=== PATIENT | male | born 1960 | race Caucasian/White ===

== ENCOUNTER 2016-07-06 02:00 | Emergency (ER) | payer OTHER ==
[~2016-07-06] VITALS: Ht 177.8 cm; Wt 86.2 kg
[2016-07-06 02:34] VITALS: BP 152/84
[2016-07-06] MEDS ORDERED: KETOROLAC 15 MG/ML VIAL. IM ONE (03:00)
[2016-07-06] MEDS ORDERED: HYDROMORPHONE 2 MG/ML VIAL. IM ONE (03:00)
[2016-07-06] MEDS ORDERED: ONDANSETRON ODT 4 MG TAB.RAPDIS PO ONE (03:00)
[2016-07-06 03:29] LABS: OBC FLU VALID
[2016-07-06] MEDS ORDERED: PROM5SYR2 PO (03:34)
[2016-07-06] MEDS ORDERED: IBUP-1007 PO (03:34)
[2016-07-06] MEDS ORDERED: OSEL75CA PO (03:34)
--- NOTE | 2016-07-06 03:34 | PHYS DOC ---
Past Medical History Past Medical History: Diverticulitis, High Cholesterol, Hypertension Past Surgical History: Appendectomy Alcohol Use: None Drug Use: None Adult General Chief Complaint Chief Complaint: CHEST PAIN HPI HPI Patient is a 55 year old gentleman who presents here today complaining of cough congestion rhinorrhea. Patient reports she been feeling sick for several days now. Patient has any shortness of breath. Patient has any abdominal pain. Patient denies any dysuria frequency urgency. Patient's physical exam was significant for tenderness to palpation to his right anterior chest wall. Patient's lungs were clear. Patient's heart is regular. Patient's chest x-ray was clear and without any infiltrates or effusions. Patient's influenza test came back positive. Patient was discharged home with Tamiflu. Patient is given a dose here in the ED. Patient will follow up with primary care physician for further evaluation. Review of Systems Review of Systems Eyes: Denies change in visual acuity, redness, or eye pain [] Respiratory: Denies cough or shortness of breath [] Cardiovascular: No additional information not addressed in HPI [] GI: Denies abdominal pain, nausea, vomiting, bloody stools or diarrhea [] : Denies dysuria or hematuria [] Musculoskeletal: Denies back pain or joint pain [] Integument: Denies rash or skin lesions [] Neurologic: Denies headache, focal weakness or sensory changes [] Endocrine: Denies polyuria or polydipsia [] All other review systems are negative except as documented in the history of present illness portion. Current Medications Current Medications Current Medications Medications (Trade) Dose Ordered Sig/Aurelio Start Time Stop Time Status Last Admin Dose Admin Hydromorphone HCl (Dilaudid) 1 mg 1X ONCE 07/06/16 03:00 07/06/16 03:01 DC 07/06/16 02:53 1 MG Ketorolac Tromethamine (Toradol) 15 mg 1X ONCE 07/06/16 03:00 07/06/16 03:01 DC 07/06/16 02:53 15 MG Ondansetron HCl (Zofran Odt) 4 mg 1X ONCE 07/06/16 03:00 07/06/16 03:01 DC 07/06/16 02:52 4 MG Oseltamivir Phosphate (Tamiflu) 75 mg 1X ONCE 07/06/16 04:00 07/06/16 04:01 DC 07/06/16 03:57 75 MG Promethazine HCl/ Codeine (Phenergan With Codeine) 10 ml 1X ONCE 07/06/16 04:00 07/06/16 04:01 DC 07/06/16 03:59 10 ML Allergies Allergies Allergies Coded Allergies Type Severity Reaction Last Updated Verified No Known Drug Allergies 07/06/16 No Physical Exam Physical Exam Constitutional: Well developed, well nourished, no acute distress, non-toxic appearance. [] HENT: Normocephalic, atraumatic, bilateral external ears normal, oropharynx moist, no oral exudates, nose normal. [] Eyes: PERRLA, EOMI, conjunctiva normal, no discharge. [] Neck: Normal range of motion, no tenderness, supple, no stridor. [] Cardiovascular:Heart rate regular rhythm, no murmur [] Lungs & Thorax: Bilateral breath sounds clear to auscultation [] Abdomen: Bowel sounds normal, soft, no tenderness, no masses, no pulsatile masses. [] Skin: Warm, dry, no erythema, no rash. [] Back: No tenderness, no CVA tenderness. [] Extremities: No tenderness, no cyanosis, no clubbing, ROM intact, no edema. [] Neurologic: Alert and oriented X 3, normal motor function, normal sensory function, no focal deficits noted. [] Psychologic: Affect normal, judgement normal, mood normal. [] Current Patient Data Vital Signs Vital Signs Date Time Temp Pulse Resp B/P Pulse Ox O2 Delivery O2 Flow Rate FiO2 07/06/16 02:53 16 Room Air 07/06/16 02:34 98.6 88 152/84 95 98.6 Lab Values Laboratory Tests Test 07/06/16 02:19 Influenza Type A Antigen Positive (NEGATIVE) Influenza Type B Antigen Negative (NEGATIVE) EKG EKG [] Radiology/Procedures Radiology/Procedures [] Course & Med Decision Making Course & Med Decision Making Pertinent Labs and Imaging studies reviewed. (See chart for details) [] Dragon Disclaimer Dragon Disclaimer This electronic medical record was generated, in whole or in part, using a voice recognition dictation system. Departure Departure Impression: Primary Impression: Influenza Additional Impression: Chest wall pain Disposition: HOME, SELF-CARE Condition: IMPROVED Referrals: NO PCP (PCP) Patient Instructions: Chest Wall Pain, Influenza, Adult Scripts Oseltamivir Phosphate (Tamiflu)75 Mg [id number] Mg PO BID FLU 5 Days Prov:DARSHANA MCKEE MD 07/06/16 Promethazine HCl/Codeine (Prometh-Codein 6.25-10 mg/5 ml)5 Ml Syrup10 Ml PO Q6HRS PRN COUGH #240 Prov:DARSHANA MCKEE MD 07/06/16 Ibuprofen 600 Mg [id number] Mg PO PRN Q6HRS PRN INFLAMMATION #30 TAB Prov:DARSHANA MCKEE MD 07/06/16 Problem Qualifiers DARSHANA MCKEE MD Jul 06, 2016 03:34
[2016-07-06] MEDS ORDERED: PROMETH/CODEINE 6.25/10MG 5 ML SYRUP. PO ONE (04:00)
[2016-07-06] MEDS ORDERED: OSELTAMIVIR 75 MG CAPSULE PO ONE (04:00)
--- NOTE | 2016-07-06 06:40 | EKG ---
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
--- NOTE | 2016-07-06 07:19 | RAD ---
Exam performed: 2 views of the chest. Indication: chest pain, cough Date of Service:07/06/2016 4:18 AM . Comparison : One view chest from 08/12/09 Findings: PA and lateral radiographs of the chest reveal a normal cardiomediastinal contour. The lungs are clear. No pleural fluid is seen. The visualized osseous structures are unremarkable. Impression: Radiographically normal chest.
== END 2016-07-06 04:01 | disposition home or self-care (01) ==
LOC: ER 02:00
DX: J11.1 Influenza due to unidentified influenza virus with other respiratory manifestations (principal); R07.89 Other chest pain; E78.00 Pure hypercholesterolemia, unspecified; I10 Essential (primary) hypertension
CPT/HCPCS: 71020; 87804; 93005; 96372; 99285; J1170; J1885; Q0162

== ENCOUNTER 2018-02-24 14:47 | Emergency (ER) | payer OTHER ==
[~2018-02-24] VITALS: Ht 165.1 cm; Wt 99.8 kg
[~2018-02-24 14:47] MED LIST: IBUP-1007 PO; OSEL75CA PO; PROM5SYR2 PO
--- NOTE | 2018-02-24 16:03 | PHYS DOC ---
Past Medical History Past Medical History: Diverticulitis, High Cholesterol, Hypertension Past Surgical History: Appendectomy Alcohol Use: None Drug Use: None Adult General Chief Complaint Chief Complaint: DIZZY/LIGHT HEADED HPI HPI 57-year-old male presents with his for evaluation of dizziness he describes as a lightheadedness, nausea and vomiting since yesterday. Patient denies any chest or abdominal pain. He reports feeling the symptoms regardless of his position. He denies any room spinning dizziness. His reports he was seen at urgent care today, she states the doctor sent him to the emergency room for evaluation because "his eyes were fluttering". Patient denies history of vertigo. He states no new medications. Review of Systems Review of Systems Constitutional: Denies fever or chills [] Eyes: Denies change in visual acuity, redness, or eye pain [] HENT: Denies nasal congestion or sore throat [] Respiratory: Denies cough or shortness of breath [] Cardiovascular: No additional information not addressed in HPI [] GI: Denies abdominal pain, nausea, vomiting, bloody stools or diarrhea [] : Denies dysuria or hematuria [] Musculoskeletal: Denies back pain or joint pain [] Integument: Denies rash or skin lesions [] Neurologic: Denies headache, focal weakness or sensory changes [] Endocrine: Denies polyuria or polydipsia [] All other systems were reviewed and found to be within normal limits, except as documented in this note. Current Medications Current Medications Current Medications Medications (Trade) Dose Ordered Sig/Aurelio Start Time Stop Time Status Last Admin Dose Admin Ketorolac Tromethamine (Toradol 15mg Vial) 15 mg 1X ONCE 02/24/18 18:30 02/24/18 18:31 DC 02/24/18 18:31 15 MG Meclizine HCl (Antivert) 25 mg 1X ONCE 02/24/18 17:00 02/24/18 17:01 DC 02/24/18 17:56 25 MG Nicotine (Nicoderm Cq 14mg) 1 patch DAILY 02/25/18 09:00 Allergies Allergies Allergies Coded Allergies Type Severity Reaction Last Updated Verified shellfish derived Allergy Unknown 02/24/18 Yes Physical Exam Physical Exam Constitutional: Well developed, well nourished, no acute distress, non-toxic appearance. [] HENT: Normocephalic, atraumatic, bilateral external ears normal, Eyes: PERRLA, EOMI, conjunctiva normal, no discharge, NO NYSTAGMUS. [] Neck: Normal range of motion, no tenderness, supple, no stridor. [] Cardiovascular:Heart rate regular rhythm, no murmur [] Lungs & Thorax: Bilateral breath sounds clear to auscultation [] Abdomen: Bowel sounds normal, soft, no tenderness, no masses, no pulsatile masses. [] Skin: Warm, dry, no erythema, no rash. [] Neurologic: Alert and oriented X 3, normal motor function, normal sensory function, no focal deficits noted. [] Psychologic: Affect normal, judgement normal, mood normal. [] NIH=0 Current Patient Data Vital Signs Vital Signs Date Time Temp Pulse Resp B/P (MAP) Pulse Ox O2 Delivery O2 Flow Rate FiO2 02/24/18 15:42 97.7 75 20 147/83 (104) 97 Room Air 97.7 Lab Values Laboratory Tests Test 02/24/18 15:56 02/24/18 16:15 02/24/18 16:20 Glucose (Fingerstick) 121 mg/dL (70-99) H White Blood Count 9.4 x10^3/uL (4.0-11.0) Red Blood Count 5.01 x10^6/uL (4.30-5.70) Hemoglobin 15.5 g/dL (13.0-17.5) Hematocrit 43.8 % (39.0-53.0) Mean Corpuscular Volume 87 fL (79-100) Mean Corpuscular Hemoglobin 31 pg (25-35) Mean Corpuscular Hemoglobin Concent 36 g/dL (31-37) Red Cell Distribution Width 13.8 % (11.5-14.5) Platelet Count 219 x10^3/uL (140-400) Neutrophils (%) (Auto) 82 % (31-73) H Lymphocytes (%) (Auto) 12 % (24-48) L Monocytes (%) (Auto) 5 % (0-9) Eosinophils (%) (Auto) 0 % (0-3) Basophils (%) (Auto) 1 % (0-3) Neutrophils # (Auto) 7.7 x10^3uL (1.8-7.7) Lymphocytes # (Auto) 1.1 x10^3/uL (1.0-4.8) Monocytes # (Auto) 0.5 x10^3/uL (0.0-1.1) Eosinophils # (Auto) 0.0 x10^3/uL (0.0-0.7) Basophils # (Auto) 0.0 x10^3/uL (0.0-0.2) Sodium Level 137 mmol/L (136-145) Potassium Level 4.1 mmol/L (3.5-5.1) Chloride Level 102 mmol/L (98-107) Carbon Dioxide Level 26 mmol/L (21-32) Anion Gap 9 (6-14) Blood Urea Nitrogen 12 mg/dL (8-26) Creatinine 0.9 mg/dL (0.7-1.3) Estimated GFR (Cockcroft-Gault) 87.0 BUN/Creatinine Ratio 13 (6-20) Glucose Level 127 mg/dL (70-99) H Calcium Level 9.0 mg/dL (8.5-10.1) Total Bilirubin 0.5 mg/dL (0.2-1.0) Aspartate Amino Transferase (AST) 13 U/L (15-37) L Alanine Aminotransferase (ALT) 25 U/L (16-63) Alkaline Phosphatase 73 U/L (46-116) Creatine Kinase 267 U/L (39-308) Creatine Kinase MB (Mass) 1.9 ng/mL (0.0-3.6) Creatine Kinase MB Relative Index 0.7 % (0-4) Total Protein 7.3 g/dL (6.4-8.2) Albumin 3.8 g/dL (3.4-5.0) Albumin/Globulin Ratio 1.1 (1.0-1.7) POC Troponin I 0.01 ng/ml (<0.08) Laboratory Tests 02/24/18 16:15 Laboratory Tests 02/24/18 16:15 EKG EKG [EKG showing sinus rhythm, no STEMI, heart rate 72, read by ER physician] Radiology/Procedures Radiology/Procedures [PROCEDURE: PORTABLE CHEST 1V Portable chest, 02/24/2018: HISTORY: Dizziness, high blood pressure Comparison is made to a study from 07/06/2016. The heart size and pulmonary vascularity are normal. No pulmonary infiltrates are seen. There is no evidence of pleural fluid. IMPRESSION: No acute cardiopulmonary abnormality is detected. Electronically signed by: Christo Lopez MD (02/24/2018 4:54 PM) [facility] PROCEDURE: CT HEAD WO CONTRAST PQRS Compliance statement: One or more of the following individualized dose reduction techniques were utilized for this examination: 1. Automated exposure control. 2. Adjustment of the mA and/or kV according to patient size. 3. Use of iterative reconstruction technique. Indication:dizzy, nystagmus TECHNIQUE: CT head without IV contrast COMPARISON:08/12/2009 FINDINGS: No pathologic extra-axial or intra-axial fluid collection. The ventricles and basal cisterns are within normal limits. No acute intracranial bleed. No focal loss of gorman-white differentiation. The orbits are within normal limits. Mild atherosclerotic disease seen of the bilateral cavernous segments of the ICA. No suspicious calvarial lesion. Visualized paranasal sinuses and mastoid air cells are clear. IMPRESSION: No acute intracranial process. If concern for acute ischemic stroke is high, please consider MRI brain.] Course & Med Decision Making Course & Med Decision Making Pertinent Labs and Imaging studies reviewed. (See chart for details) [Symptoms appear to be consistent with vertigo, there is been no nystagmus on exam while in emergency room. Patient is complaining of headache, he has no lateralizing weakness, NIH remains 0. I spoke c Dr Gutierrez regarding admission for further neurology evaluation, he feels pt does not need admission to hospital as headache has not been addressed c medications in emergency room. Pt given IV Toradol and reports LEWIS decreased. Vital signs remain normal. Pt has good f/u, has pcp, will call tomorrow for f/u appointment. Dragon Disclaimer Dragon Disclaimer This electronic medical record was generated, in whole or in part, using a voice recognition dictation system. Departure Departure Impression: Primary Impression: Dizziness Additional Impression: Headache Disposition: 01 HOME, SELF-CARE Condition: STABLE Referrals: NO PCP (PCP) Patient Instructions: Dizziness Scripts Meclizine Hcl (MECLIZINE HCL) 25 Mg Tablet 25 MG PO Q8HRS PRN for DIZZINESS, #12 TAB Prov: KARLA DIAZ APRN 02/24/18 Problem Qualifiers KARLA DIAZ APRN Feb 24, 2018 16:03
--- NOTE | 2018-02-24 16:18 | EKG ---
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
[2018-02-24 16:22] LABS: BASO % 1 % (0-3); EOS % 0 % (0-3); HEMATOCRIT 43.8 % (39.0-53.0); HEMOGLOBIN 15.5 g/dL (13.0-17.5); LYMPH # 1.1 x10^3/uL (1.0-4.8); LYMPH % 12 % (24-48); MEAN CORPUSCULAR HEMOGLOBIN 31 pg (25-35); MEAN CORPUSCULAR HGB CONC 36 g/dL (31-37); MEAN CORPUSCULAR VOLUME 87 fL (79-100); MONO # 0.5 x10^3/uL (0.0-1.1); MONO % 5 % (0-9); NEUT # 7.7 x10^3uL (1.8-7.7); NEUT % 82 % (31-73); PLATELET COUNT 219 x10^3/uL (140-400); RED BLOOD COUNT 5.01 x10^6/uL (4.30-5.70); RED CELL DISTRIBUTION WIDTH 13.8 % (11.5-14.5); WHITE BLOOD COUNT 9.4 x10^3/uL (4.0-11.0)
[2018-02-24 16:37] LABS: CREATININE 0.9 mg/dL (0.7-1.3); POTASSIUM 4.1 mmol/L (3.5-5.1)
[2018-02-24 16:42] LABS: ALBUMIN 3.8 g/dL (3.4-5.0); ALBUMIN/GLOBULIN RATIO 1.1 (1.0-1.7); TOTAL BILIRUBIN 0.5 mg/dL (0.2-1.0); TOTAL PROTEIN 7.3 g/dL (6.4-8.2)
--- NOTE | 2018-02-24 16:58 | RAD ---
Portable chest, 02/24/2018: HISTORY: Dizziness, high blood pressure Comparison is made to a study from 07/06/2016. The heart size and pulmonary vascularity are normal. No pulmonary infiltrates are seen. There is no evidence of pleural fluid. IMPRESSION: No acute cardiopulmonary abnormality is detected. Electronically signed by: Christo Lopez MD (02/24/2018 4:54 PM) [facility]
[2018-02-24] MEDS ORDERED: MECLIZINE HCL 12.5 MG TABLET. PO ONE (17:00)
--- NOTE | 2018-02-24 17:10 | RAD ---
PQRS Compliance statement: One or more of the following individualized dose reduction techniques were utilized for this examination: 1. Automated exposure control. 2. Adjustment of the mA and/or kV according to patient size. 3. Use of iterative reconstruction technique. Indication:dizzy, nystagmus TECHNIQUE: CT head without IV contrast COMPARISON:08/12/2009 FINDINGS: No pathologic extra-axial or intra-axial fluid collection. The ventricles and basal cisterns are within normal limits. No acute intracranial bleed. No focal loss of gorman-white differentiation. The orbits are within normal limits. Mild atherosclerotic disease seen of the bilateral cavernous segments of the ICA. No suspicious calvarial lesion. Visualized paranasal sinuses and mastoid air cells are clear. IMPRESSION: No acute intracranial process. If concern for acute ischemic stroke is high, please consider MRI brain. Electronically signed by: Sunny Ziegler DO (02/24/2018 5:06 PM) [facility]
[2018-02-24] MEDS ORDERED: KETOROLAC 15 MG/ML VIAL. IV ONE (18:30)
[2018-02-24] MEDS ORDERED: MECL25TA3 PO (18:34)
[2018-02-24 20:11] VITALS: BP 143/80
[2018-02-25] MEDS ORDERED: NICOTINE 14MG PATCH. TD SCH (09:00)
== END 2018-02-24 18:56 | disposition home or self-care (01) ==
LOC: ER 14:47
DX: R42 Dizziness and giddiness (principal); R51 Headache; I10 Essential (primary) hypertension; E78.00 Pure hypercholesterolemia, unspecified; Z90.49 Acquired absence of other specified parts of digestive tract; Z91.013 Allergy to seafood
CPT/HCPCS: 36415; 70450; 71045; 80053; 82553; 82962; 84484; 85025; 93005; 96374; 99285; J1885; J8597

== ENCOUNTER → 2018-05-07 | Outpatient (CLI) | payer OTHER ==
[~2018-05-07] MED LIST changes: +MECL25TA3 PO
--- NOTE | 2018-05-07 08:06 | RAD ---
CLINICAL HISTORY: Right upper quadrant PAIN COMPARISON: None available. TECHNIQUE: Limited ultrasound examination of the right upper quadrant of the abdomen was performed FINDINGS: Liver: The liver measures 15.6 cm in length in the right mid clavicular line. Hepatic echogenicity is normal and the margin is smooth. There is no focal abnormality of the liver. Portal and hepatic venous flow is confirmed. Gallbladder/Biliary: The gallbladder is normal in appearance without evidence for cholelithiasis. There is no wall thickening or pericholecystic fluid. There is no pain with direct transducer pressure over the gallbladder.The common bile duct measures 0.4 cm. Visualized pancreas is unremarkable. The right kidney measures 11.3 cm in bipolar length. No focal renal lesion. Normal renal cortical echotexture and thickness. No hydronephrosis. There is no free fluid in the subhepatic space. Visualized portions of the IVC are unremarkable. IMPRESSION: Essentially normal sonographic evaluation of the right upper quadrant. Electronically signed by: Last Crabtree MD (05/07/2018 8:01 AM) [facility]
== END | disposition home or self-care (01) ==
LOC: US 07:16
PROVIDERS: ATTEND Family Medicine
DX: R10.11 Right upper quadrant pain (principal)
CPT/HCPCS: 76705